=== PATIENT | female | born 1995 | race Caucasian/White ===

== ENCOUNTER 2017-05-13 19:01 | Emergency (ER) | payer SELFPAY ==
[~2017-05-13] VITALS: Ht 157.5 cm; Wt 52.8 kg
[2017-05-13 19:43] LABS: HEMATOCRIT 36.4 % (36.0-46.0); MCH 31.4 PG (29.0-34.0); MCHC 34.1 G/DL (30.0-36.0); MCV 92.2 FL (83-99); MEAN PLAT.VOLUME 11.2 uM^3 (9.5-12.4); PLATELET COUNT 194 K/uL (156-360); RBC DIS.WIDTH-CV 11.9 % (11.8-14.6); RBC DIS.WIDTH-SD 40.3 % (39-53); RED BLOOD COUNT 3.95 M/uL (3.80-5.20); WHITE BLOOD COUNT 9.8 K/uL (4.1-10.2)
[2017-05-13 20:11] LABS: CHLORIDE 109 mEq/L (99-109); POTASSIUM 3.5 mEq/L (3.7-5.4); SODIUM 143 mEq/L (136-147)
[2017-05-13 20:13] LABS: GLUCOSE 101 mg/dL (70-99)
[2017-05-13 20:14] LABS: ANION GAP 10 MEQ/L (2-14)
[2017-05-13 20:17] LABS: GFR ESTIMATE (CALCULATED) > 59 mL/min/
[2017-05-13 20:18] LABS: UREA NITROGEN (BUN) 6 mg/dL (9-23)
[2017-05-13 23:10] VITALS: BP 105/85
== END 2017-05-13 23:11 | disposition home or self-care (01) ==
LOC: EME → EDBD 19:01 → EME 23:11
PROVIDERS: Emergency Medicine
DX: T40.1X1A Poisoning by heroin, accidental (unintentional), initial encounter (principal); F12.90 Cannabis use, unspecified, uncomplicated; F17.200 Nicotine dependence, unspecified, uncomplicated
CPT/HCPCS: 80048; 81003; 84703; 85027; 93005; 99281; 99284; J2310; J2405; J7030